=== PATIENT | female | born 1970 | race Caucasian/White ===

== ENCOUNTER 2023-12-27 07:57 | Outpatient (CLI) | payer OTHER, SELFPAY ==
--- NOTE | 2023-12-27 08:15 | CRLHL7_ITS ---
For Patients: As a result of the Century Cures Act, medical imaging exams and procedure reports are released immediately into your electronic medical record. You may view this report before your referring provider. If you have questions, please contact your health care provider. BILATERAL SCREENING MAMMOGRAM WITH COMPUTER-AIDED DETECTION AND TOMOSYNTHESIS TECHNIQUE: CC and MLO views were obtained. These mammographic images have been obtained using full-field digital technique. These mammographic images were interpreted with the benefit of computer-aided detection. Breast Tomosynthesis was used in this interpretation. COMPARISON FILM: 12/21/22, 11/18/21, 07/29/20. FINDINGS: There are scattered areas of fibroglandular density. IMPRESSION: There is no radiographic evidence for malignancy. ASSESSMENT: BI-RADS Category 1: Negative RECOMMENDATION: Routine screening mammogram in 1 year. A lay language report of this examination will be provided to the patient. Eliazar Duke M.D. Diagnostic Radiologist [email or web address] SP/Dictated by: Eliazar Duke MD @ 12/27/2023 8:42:00 AM (Electronically Signed)
== END 2023-12-27 07:58 | disposition home or self-care (01) ==
LOC: MAMMO 07:58
PROVIDERS: PCP Family Medicine; Visit Provider Family Medicine
DX: Z12.31 Encounter for screening mammogram for malignant neoplasm of breast (principal)
CPT/HCPCS: 77063; 77067

== ENCOUNTER 2023-12-29 07:30 | Outpatient (RCR) | payer OTHER, SELFPAY | END 2023-12-29 15:29 | disposition home or self-care (01) | PROVIDERS: PCP Family Medicine; Visit Provider Family Medicine | DX: M25.642 Stiffness of left hand, not elsewhere classified (principal); Z51.89 Encounter for other specified aftercare | CPT/HCPCS: 97110; 97165; X5282 ==

== ENCOUNTER 2025-01-10 07:45 | Outpatient (RCR) | payer BC, SELFPAY | END 2025-01-10 09:41 | disposition home or self-care (01) | PROVIDERS: PCP Family Medicine; Visit Provider Family Medicine | DX: M77.11 Lateral epicondylitis, right elbow (principal); M65.331 Trigger finger, right middle finger; M65.332 Trigger finger, left middle finger; M65.352 Trigger finger, left little finger; Z51.89 Encounter for other specified aftercare | CPT/HCPCS: 97033; 97035; 97110; 97140; 97165; 97535; X5282 ==

== ENCOUNTER 2025-03-27 17:49 | Outpatient (CLI) | payer BC, SELFPAY ==
--- NOTE | 2025-03-27 18:00 | CRLHL7_ITS ---
For Patients: As a result of the Century Cures Act, medical imaging exams and procedure reports are released immediately into your electronic medical record. You may view this report before your referring provider. If you have questions, please contact your health care provider. INDICATION: BILATERAL SCREENING MAMOGRAM, ASYMPTOMATIC 54 Y/O FEMALE COMPARISON: 12/27/2023, 12/21/2022, 11/18/2021 TECHNIQUE: Digital mammogram in CC and MLO projections including computer-aided detection (CAD) and tomosynthesis. BREAST COMPOSITION: There are scattered areas of fibroglandular density. FINDINGS: No suspicious findings. ASSESSMENT: BI-RADS 1 Negative RECOMMENDATION: Annual screening mammogram. A lay language report of this examination will be provided to the patient. Dictated by: Eliazar Duke MD @ 03/28/2025 11:03:33 (Electronically Signed)
== END 2025-03-27 17:50 | disposition home or self-care (01) ==
LOC: MAMMO 17:49
PROVIDERS: PCP Family Medicine; Visit Provider Family Medicine
DX: Z12.31 Encounter for screening mammogram for malignant neoplasm of breast (principal)
CPT/HCPCS: 77063; 77067